=== PATIENT | male | born 1945 | race Caucasian/White ===

== ENCOUNTER 2019-01-18 14:20 | Emergency (ER) | payer MEDICARE, OTHER ==
[~2019-01-18] VITALS: Ht 172.7 cm; Wt 90.7 kg
[~2019-01-18 14:20] MED LIST: ASPI-231 PO; GABA300C10 PO; LISI40TA PO; METF-370 PO; METO25TA5 PO; SIMV-13 PO; TERA5CAP42 PO
[2019-01-18] MEDS ORDERED: CALCIUM CHLOR(10%) 100MG/ML 10ML SYRINGE IV ONE (14:23)
[2019-01-18] MEDS ORDERED: SODIUM BICARBONATE 8.4 % INJ 50ML VIAL IV ONE (14:23)
[2019-01-18] MEDS ORDERED: EPINEPHrine HCL 1 MG/10 ML SYRG IV ONE (14:23)
== END 2019-01-18 14:35 | disposition expired ==
LOC: EDBD 14:20 → ER 14:22
DX: I46.9 Cardiac arrest, cause unspecified (principal); E11.9 Type 2 diabetes mellitus without complications; E78.5 Hyperlipidemia, unspecified; I10 Essential (primary) hypertension; I25.2 Old myocardial infarction; F17.210 Nicotine dependence, cigarettes, uncomplicated; Z98.61 Coronary angioplasty status; Z79.899 Other long term (current) drug therapy
CPT/HCPCS: 31500; 92950; 99285; J0171